=== PATIENT | female | born 1990 | race Caucasian/White ===

== ENCOUNTER 2021-07-26 00:37 | Inpatient (IN) | payer OTHER, SELFPAY ==
[2021-07-26] VITALS (117 sets, daily range): BP systolic 105–159; BP diastolic 48–118; PULSE 68–112; RESP 16; TEMP 36.1–37.2; O2SAT 97–100; BMI 26.7
--- NOTE | 2021-07-26 00:37 | LDADM ---
This patient, Jihan Bruno, was admitted to Labor/Delivery/Recovery 104 on 07/26/21 at 00:37. Plans for labor, pain management and were discussed with patient. Patient/family oriented to hospital policies and general routines including ID bracelet, bed and alarms, visiting hours, pain management, procedures, bathroom and other care routines, personal items, smoking policy, room service/diet and guest tray routines, infant security routines, and visiting hours. Patient/Family are encouraged to report perceived risks to care and to ask questions if they do not understand what they are told or what they should do. See OBIX for further documentation.
[2021-07-26] MEDS: OXYTOCIN 30 UNITS/NS 500 ML 30 UNITS/500 ML BAG IV CONT (01:34)
[2021-07-26] MEDS: LACTATED RINGERS 1,000 ML 125 ML IV CONT ×4 (01:35→16:27)
[2021-07-26 01:39] LABS: Basophils Percent Auto 0.2 % (0.2-1.2); Eosinophils Absolute Auto 0.2 K/mm3 (0-0.3); Eosinophils Percent Auto 1.8 % (0-4.4); Hematocrit 32.7 % (37.0-47.0); Hemoglobin 11.1 g/dL (12.0-15.0); Immature Granulocyte Absolute 0.03 K/mm3 (0.00-0.031); Immature Granulocyte Percent A 0.3 % (0-0.5); Lymphocytes Absolute Auto 1.97 K/mm3 (0.9-3.2); Lymphocytes Percent Auto 19.9 % (18.3-44.2); Mean Corpuscular HGB Conc 33.9 g/dl (32-36); Mean Corpuscular Hemoglobin 29.3 pg (26-34); Mean Corpuscular Volume 86.3 fl (80-100); Mean Platelet Volume 9.5 fl (7.4-10.4); Monocytes Absolute Auto 0.9 K/mm3 (0.1-0.6); Monocytes Percent Auto 9.2 % (2.6-8.5); Neutrophils Absolute Auto 6.8 K/mm3 (1.3-6.7); Neutrophils Percent Auto 68.6 % (45.5-73.1); Platelet Count Result 333 k/mm3 (150-375); Red Blood Count 3.79 M/mm3 (4.2-5.4); Red Cell Distribution Width 12.8 % (11.5-14.5); White Blood Count 9.9 K/mm3 (4.5-10.0)
[2021-07-26 01:56] LABS: Amphetamine Screen Urine Negative (Negative); Barbiturate Screen Urine Negative (Negative); Benzodiazepines Screen Urine Negative (Negative); Cannabinoid Screen Urine Negative (Negative); Cocaine Screen Urine Negative (Negative); Methadone Screen Urine Negative (Negative); Opiate Screen Urine Negative (Negative); Phencyclidine Screen Urine Negative (Negative)
--- NOTE | 2021-07-26 05:27 | WPDANESEPP ---
Anes - Eval Pre Procedure Date/Time: 07/26/21 05:27 Pre Op Diagnosis: Induction Patient Data Age: 31 Gender: F Height: 1.7 m Weight: 77.5 kg Last Vital Signs Pulse 75 07/26/21 05:00 BP 126/69 07/26/21 05:00 Allergies Allergy/AdvReac Type Severity Reaction Status Date / Time blueberry Allergy Swelling Verified 07/25/21 16:03 of the Eye Home Medications Medication Instructions Recorded Confirmed Type prenat.vits,sony,[id number] 1 tablet PO DAILY 07/25/21 07/25/21 History [ #2] Laboratory Tests 07/26/21 07/26/21 07/26/21 01:05 01:05 01:05 WBC 9.9 K/mm3 K/mm3 (4.5-10.0) RBC 3.79 M/mm3 L M/mm3 (4.2-5.4) Hgb 11.1 g/dL L g/dL (12.0-15.0) Hct 32.7 % L % (37.0-47.0) MCV 86.3 fl fl (80-100) MCH 29.3 pg pg (26-34) MCHC 33.9 g/dl g/dl (32-36) RDW 12.8 % % (11.5-14.5) Plt Count 333 k/mm3 k/mm3 (150-375) MPV 9.5 fl fl (7.4-10.4) Immature Gran % (Auto) 0.3 % % (0-0.5) Neut % (Auto) 68.6 % % (45.5-73.1) Lymph % (Auto) 19.9 % % (18.3-44.2) [place] % (Auto) 9.2 % H % (2.6-8.5) Eos % (Auto) 1.8 % % (0-4.4) Baso % (Auto) 0.2 % % (0.2-1.2) Lymph # (Auto) 1.97 K/mm3 K/mm3 (0.9-3.2) [place] # (Auto) 0.9 K/mm3 H K/mm3 (0.1-0.6) Eos # (Auto) 0.2 K/mm3 K/mm3 (0-0.3) Baso # (Auto) 0.0 K/mm3 K/mm3 (0.0-0.1) Abs Immat Gran (auto) 0.03 K/mm3 K/mm3 (0.00-0.031) Absolute Neuts (auto) 6.8 K/mm3 H K/mm3 (1.3-6.7) Absolute Nucleated RBC 0.0 K/mm3 K/mm3 (0.0-0.012) Nucleated RBC % 0.0 % % (0.0-0.2) Urine Opiates Screen Urine Methadone Screen Ur Barbiturates Screen Ur Phencyclidine Scrn Ur Amphetamine Screen U Benzodiazepines Scrn Urine Cocaine Screen U Cannabinoids Screen RPR Pending Blood Type O Positive Antibody Screen Negative 07/26/21 01:05 WBC RBC Hgb Hct MCV MCH MCHC RDW Plt Count MPV Immature Gran % (Auto) Neut % (Auto) Lymph % (Auto) [place] % (Auto) Eos % (Auto) Baso % (Auto) Lymph # (Auto) [place] # (Auto) Eos # (Auto) Baso # (Auto) Abs Immat Gran (auto) Absolute Neuts (auto) Absolute Nucleated RBC Nucleated RBC % Urine Opiates Screen Negative (Negative) Urine Methadone Screen Negative (Negative) Ur Barbiturates Screen Negative (Negative) Ur Phencyclidine Scrn Negative (Negative) Ur Amphetamine Screen Negative (Negative) U Benzodiazepines Scrn Negative (Negative) Urine Cocaine Screen Negative (Negative) U Cannabinoids Screen Negative (Negative) RPR Blood Type Antibody Screen Patient hx anesthesia problems: none Family hx anesthesia problems: none Results Review: All pre-operative results and documents have been reviewed as part of the pre-operative evaluation. [facility] Family History Family History Mother Bipolar 1 disorder Social History Social History Smoking status: Never smoker Second hand tobacco smoke exposure: Yes Substance use: former Last use: quit when found out preg Spiritual care concerns: No Exam Day of Procedure 07/26/21 05:27 Patient weight: normal Heart: regular rate and rhythm Lungs: normal air movement Airway: Mallampati scale Neurological: alert and oriented
[2021-07-26 07:03] LABS: Rapid Plasma Reagin Non-Reactive (NonReactive)
--- NOTE | 2021-07-26 07:28 | WPDOBADMIT ---
Obstetrics - Admit Note Admission Note: record reviewed. No pertinent additions to the history and/or any subsequent changes in the physical findings that are not consistent with the expected course of the were found. Elective induction of labor. Anticipate vaginal delivery. Additions to the history and/or subsequent changes in the physical findings follow. None.
--- NOTE | 2021-07-26 16:31 | PM.OBPRVD ---
OB - Delivery Note Procedure Delivery date: 07/26/21 Procedure: Vaginal delivery Induction method: Per Pitocin Protocol Delivery augmentation: Rupture of Membranes Delivery monitor: External FHT and External Uterine Route of delivery: Laceration Description: None Specimen: No Quantitative Blood Loss (ml): 115 Anesthesia type: Epidural Disposition: Floor Baby Date of : 07/26/21 Time of : 16:17 Weeks of gestation at delivery: 39 gender: Male Weight (pounds): 8 Weight (ounces): 12 presentation: vertex position: Left Occiput Anterior Placenta delivery description: Spontaneous Cord Vessel Description: 3 Vessels and Clamped/Cut score one minute: 8 score five minutes: 9 Narrative: head delivered. Anterior shoulder slow to deliver. Small amount of suprapubic pressure and shoulder delivered. Rest of baby delivered without difficulty. Baby to warmer for evaluation. Baby moving both arms, equally.
[2021-07-26] MEDS: OXYTOCIN 30 UNITS/NS 500 ML 30 UNITS/500 ML BAG 125 UNITS IV CONT (16:38)
[2021-07-26] MEDS: WITCH HAZEL 40 PADS 1 PAD TOPICAL (18:52)
[2021-07-26] MEDS: BENZOCAINE 20% AER SPR (*SP) 56 GM CAN 1 SPRAY TOPICAL (18:52)
--- NOTE | 2021-07-26 18:56 | OBPPTRN ---
Patient transferred to post room #288 via wheelchair. Support person present. Oriented to unit, room, information board, rooming in, admission packet and security measures. Patient verbalizes understanding.
[2021-07-26] MEDS: IBUPROFEN 600 MG TABLET PO (19:39)
[2021-07-27 03:45] VITALS: BP 102/55; PULSE 74; RESP 16; TEMP 36.7; O2SAT 98
[2021-07-27] MEDS: IBUPROFEN 600 MG TABLET PO ×2 (03:51→10:43)
[2021-07-27 05:07] LABS: Hematocrit 29.7 % (37.0-47.0); Hemoglobin 9.5 g/dL (12.0-15.0)
--- NOTE | 2021-07-27 07:49 | PM.OBPNVD ---
OB - PN: Subj Subjective Date/time seen: 07/27/21 07:49 Patient comments: no complaints, pain well controlled, incisional pain, tolerating diet and flatus present OB - PN: Obj Data Labs CBC & Chem 7: 07/27/21 03:58 Labs: Laboratory Results - last 24 hr 07/27/21 03:58 Hgb 9.5 L Hct 29.7 L OB - PN A/P Plan day: 1 Plan: routine care Comments: No problems, routine care Time Spent With Patient Time: Total time spent is greater than 50% in coordination of care (as documented) at patient's floor/unit and/or counseling patient: Exam Const: General: comfortable, no acute distress and alert Resp: Effort & Inspection: normal respiratory effort Auscultation: no crackles, no rales and no rhonchi Cardio: Rate: regular rate Heart sounds: no click, no murmurs and no rubs GI: Inspection: non-distended GI Palp: No Tenderness to palpation present (GI) Auscultation: normal bowel sounds Other: Incision - CDI Extrem: General: normal to inspection, no pedal edema and no calf tenderness
[2021-07-27 08:00] VITALS: PULSE 75; RESP 16; O2SAT 99
--- NOTE | 2021-07-27 09:53 | WPDANLDPN2 ---
Anes-Prog Note L&D Date/Time: 07/27/21 09:53 Comfortable throughout: labor and delivery Neuraxial method: epidural Epidural/Spinal procedure site: clean & non-tender Neuro status: Neuro function grossly intact. Cardiovascular status: normal Respiratory status: normal Airway patency: baseline Mental status: baseline Post-Op hydration status: normal Vital Signs: Last Vital Signs Temp 36.7 C 07/27/21 03:45 Pulse 74 07/27/21 03:45 Resp 16 07/27/21 03:45 BP 102/55 L 07/27/21 03:45 Pulse Ox 98 07/27/21 03:45 Pain score (VAS): 03/27 I/O: Intake & Output 07/26/21 07/27/21 07/27/21 23:59 07:59 15:59 Intake Total 2100 400 Output Total 275 Balance 1825 400 Post-procedural complaints: none Patient feedback: Patient satisfied with anesthetic care.
[2021-07-27] MEDS: DOCUSATE SODIUM 100 MG CAPSULE PO ×2 (10:42→16:59)
[2021-07-27] MEDS: POLYSACCHARIDE IRON COMPLEX 150 MG CAPSULE PO ×2 (10:43→16:59)
[2021-07-27] MEDS: MULTIVIT/MIN/PREN/FOL AC/IRON TABLET 1 TAB PO (10:43)
[2021-07-27 12:08] VITALS: BP 116/81; PULSE 88; RESP 18; TEMP 36.5; O2SAT 99
[2021-07-27 16:22] VITALS: BP 117/68; PULSE 75; RESP 16; TEMP 36.9; O2SAT 99
[2021-07-28 08:42] VITALS: BP 125/75; PULSE 87; RESP 16; TEMP 37.1; O2SAT 98
--- NOTE | 2021-08-24 21:31 | P.DS_ITS ---
DS: Admitting Diagnosis Discharge Date 07/27/21 Admitting Diagnosis term gestation OB - DS: Summary OB Procedures : None OB Procedures Intrapartum: Spontaneous Vag Delivery OB Procedures: : None Time Spent with Patient Time attestation: Total time spent providing and/or coordinating discharge services: Discharge Plan Discharge Consulting providers: Amanda Mattson ; Julia Brito ; Marta Nguyen Discharging Clinician: Cruz Mauricio Anticipated Discharge Date/Time: 07/27/21 17:52 Patient Disposition: Home, Self-Care Activity: may shower, as tolerated and pelvic rest Diet: regular Discharge Instructions: Education: Mom and Baby Guide Given to: Mother Follow-Up: Call your delivering provider's office for an appointment to be seen in: 4 Weeks Mom and baby should come to the [facility] for the follow-up appointment. Appointment Date/Time: Wednesday, July 28, 2021 at 9:00 a.m. What to expect at your follow-up visit: Blood Pressure Check Physical Assessment Call [phone] if you are unable to keep your appointment time. BREAST CARE: * Wear a snug supportive bra. * For engorgement discomfort: Breast Feeding: * Apply warm moist washcloths * Express milk as needed to relieve engorgement * Wear loose clothing * For sore nipples: * Identify correct latch-on * Apply warm moist washcloths before and after nursing * Air dry nipples after nursing * May apply Lansinoh cream to nipples EPISIOTOMY/PERINEAL CARE: * Until bleeding stops, use your kinza bottle after urinating * Change your pad frequently throughout the day * You may take sitz baths several times a day (fill your bathtub with warm water and soak for 20 minutes.) Do NOT bathe in the water * No tub baths until seen by your physician - You may shower ACTIVITY: * Rest as much as possible. * Do not exercise or lift anything heavier than your baby (such as laundry or other children.) * Avoid stairs or driving as much as possible. * Do not put anything into the vagina. No douching, tampons, or sexual activity until seen by physician. NOTIFY PHYSICIAN IF YOU HAVE ANY QUESTIONS OR IF ANY OF THE FOLLOWING SYMPTOMS OCCUR: * If your perineum becomes red, swollen, or more painful than what you have experienced in the hospital. * If your vaginal bleeding becomes foul smelling. * If your vaginal bleeding becomes more heavy than a period or if your bleeding changes from pink to bright red. However, you may pass an occasional walnut- sized clot once or twice for the first week . * If you experience a sharp, shooting pain in you calves. * If you discover a hard, reddened area on your breast or if you experience flu- like symptoms. DIET: * Eat regular, well-balanced meals. * Drink plenty of fluids daily. If , drink to thirst. Stand Alone Forms: General Discharge Information Follow-up/Referrals: Cruz Mauricio MD [Physician] - 4 Weeks Discharge Medications: Continued prenat.vits,sony,[id number]-[id number] Tablet 1 tablet PO DAILY Date of admission: 07/26/21 00:37 Primary Care Provider: PHYSICIAN,PIE FILLER Admitting Provider: Rachel Rascon Attending physician on admission: Cruz Mauricio Condition: Stable
== END 2021-07-27 19:14 | disposition home or self-care (01) | DRG 807 ==
LOC: ANHOB2 07-27 17:53 → ANHLDR 07-28 09:31
PROVIDERS: Advanced Practice Midwife; Admitting Provider Obstetrics & Gynecology; Visit Provider Obstetrics & Gynecology
DX: O36.8330 Maternal care for abnormalities of the fetal heart rate or rhythm, third trimester, not applicable or unspecified (principal); Z37.0 Single live birth; Z3A.39 39 weeks gestation of pregnancy
CPT/HCPCS: 36415; 80307; 85014; 85018; 85025; 86592; 86850; 86900; 86901; A9270; J0131; J2590; J2795; J7120